=== PATIENT | male | born 1975 | race Caucasian/White ===

== ENCOUNTER → 2018-02-21 | Outpatient (CLI) | payer BC ==
[~2018-02-21] MED LIST: NO HOME MEDICATIONS
== END ==
LOC: COL.LAB 16:38
DX: N48.9 Disorder of penis, unspecified (principal)

== ENCOUNTER → 2018-07-26 | Outpatient (CLI) | payer OTHER | LOC: COL.RAD 09:40 | DX: S80.02XA Contusion of left knee, initial encounter (principal); S83.522A Sprain of posterior cruciate ligament of left knee, initial encounter; S83.242A Other tear of medial meniscus, current injury, left knee, initial encounter; M25.862 Other specified joint disorders, left knee ==

== ENCOUNTER 2018-08-01 09:13 | Outpatient (RCR) | payer OTHER | END 2018-08-07 | disposition home or self-care (01) | LOC: WSOH | DX: M25.562 Pain in left knee (principal); S80.02XA Contusion of left knee, initial encounter; W01.0XXA Fall on same level from slipping, tripping and stumbling without subsequent striking against object, initial encounter; Y93.01 Activity, walking, marching and hiking; Y92.59 Other trade areas as the place of occurrence of the external cause; Y99.0 Civilian activity done for income or pay; Z87.891 Personal history of nicotine dependence; Z79.899 Other long term (current) drug therapy | CPT/HCPCS: 24774; L1810 ==